=== PATIENT | female | born 1935 | race Caucasian/White ===

== ENCOUNTER 2016-07-19 10:14 | Emergency (ER) | payer OTHER, MEDICAID ==
[2016-07-19 10:45] VITALS: TEMP 95.6
[2016-07-19] MEDS ORDERED: cefTRIAXone SODIUM 1 GM VIAL ONE (10:59)
[2016-07-19] MEDS ORDERED: SODIUM CHL 0.9% 50ML MIN-BAG+ 50 ML IVPB ONE (10:59)
[2016-07-19] MEDS: ACETAMINOPHEN 325 MG TAB PO ONE (11:00)
[2016-07-19] MEDS: cefTRIAXone SODIUM 1 GM in SODIUM CHL 0.9% 50ML MIN-BAG+ 50 ML IVPB ONE (11:01)
--- NOTE | 2016-07-19 11:26 | RAD ---
EXAM DESCRIPTION: XR CHEST 1 VIEW CLINICAL HISTORY: hypoxia COMPARISON: 19 April 2016. TECHNIQUE: AP portable chest FINDINGS: A pacemaker with atrial and ventricular leads is observed. Cardiomegaly and pulmonary vascular congestion are observed. Diffuse interstitial edema is noted. Degenerative changes are observed in both shoulders. IMPRESSION: Findings of congestive heart failure demonstrated. Electronically signed by: Markus Mckinney MD 07/19/2016 11:24
[2016-07-19] MEDS ORDERED: FUROSEMIDE INJ 40 MG/4 ML VIAL ONE (11:41)
[2016-07-19] MEDS: FUROSEMIDE INJ 100 MG/10 ML VIAL IV ONE (11:42)
--- NOTE | 2016-07-19 11:48 | ED.PDOC ---
History of Present Illness - General Chief Complaint: Respiratory Problem Stated Complaint: shortness of breath Time Seen by Provider: 07/19/16 10:34 Source: patient, family Exam Limitations: no limitations - History of Present Illness Initial Comments: the patient is a 81-year-old female brought into the emergency room by her daughter. The patient has had progressive symptoms over the last 4-5 days of progressive weakness and near syncopal episodes. She does have chronic renal insufficiency and is on dialysis. She is due for dialysis today. She became weak today and was unable to ambulate even with her walker. Upon arrival of EMS her oxygen saturations were down around 70%. She does normally have some oxygen at home for as needed use and has been on that for the last 24 hours at 2 L still around 70% even with 2 L. She is now at 93% with a nonrebreather. She feels like she is having a productive sputum but is not really getting anything up. She does get more short of breath with lying back flat. There is question of fever over the last 24 hours. She apparently does not spike much of a fever with previous pneumonias. She does not make much urine. Timing/Duration: 1 week Severity: severe Improving Factors: nothing Worsening Factors: movement Associated Symptoms: loss of appetite, malaise, shortness of breath, weakness Allergies/Adverse Reactions: Allergies NO KNOWN ALLERGY Allergy (Verified 04/17/16 18:05) Home Medications: Ambulatory Orders ALPRAZolam [Xanax] 0.5 mg PO BID 04/18/16 Allopurinol [Zyloprim] 100 mg PO DAILY 04/18/16 Aspirin [Aspirin EC] 81 mg PO DAILY 04/18/16 Budesonide-Formoterol Fumarate [Symbicort 160-4.5 Mcg/Act] 1 aer IN DAILY Carvedilol [Coreg] 6.25 mg PO BID 04/18/16 DULoxetine HCL [Cymbalta] 30 mg PO BID 04/18/16 Diltiazem HCl [Dilt-Xr] 120 mg PO BID 04/18/16 Furosemide [Lasix] 40 mg PO DAILY 04/18/16 HYDROcodone 10MG/APAP 325MG [[place] 10325] 1 tab PO Q6H PRN 04/18/16 Hydralazine HCl 100 mg PO TID 04/18/16 Ipratropium/Albuterol [Duoneb] 3 ml NEB QID 04/18/16 Isosorbide Mononitrate [Isosorbide Mononitrate ER] 30 mg PO DAILY 04/18/16 Lovastatin 20 mg PO BEDTIME 04/18/16 Pantoprazole Sodium 40 mg PO ACBK 04/18/16 Sevelamer Carbonate [Renvela] 800 mg PO TID 04/18/16 Tiotropium [place] Monohydrate [Spiriva Handihaler] 1 puff IN DAILY 04/18/16 Review of Systems - Review of Systems Constitutional: States: malaise, weakness EENTM: States: no symptoms reported Respiratory: States: cough, short of breath, wheezing Cardiology: States: edema Gastrointestinal/Abdominal: States: no symptoms reported Genitourinary: States: no symptoms reported Musculoskeletal: States: no symptoms reported Skin: States: no symptoms reported Neurological: States: weakness All other Systems: No Change from Baseline Past Medical History (General) - Patient Medical History Hx Seizures: No Hx Stroke: No Hx Dementia: No Hx Asthma: No Hx of COPD: Yes Hx Congestive Heart Failure: Yes Hx Pacemaker: Yes Hx Hypertension: Yes Hx Thyroid Disease: No Hx Diabetes: Yes Hx Gastroesophageal Reflux: No Hx Renal Disease: Yes - Dialysis Hx Cancer: No Hx Hepatitis C: No Hx MRSA: No Surgical History: appendectomy, cholecystectomy, pacemaker - Vaccination History Hx Tetanus, Diphtheria Vaccination: Yes Hx Influenza Vaccination: Yes Hx Pneumococcal Vaccination: Yes - Social History Hx Tobacco Use: Yes Hx Alcohol Use: No Hx Substance Use: No Hx Physical Abuse: No Hx Emotional Abuse: No - Female History Patient : No Family Medical History - Family History Mother Family History: Unknown Physical Exam - Physical Exam General Appearance: Alert, Ill Appearing Eye Exam: bilateral normal Ears, Nose, Throat: hearing grossly normal - mildly decreased bilaterally, normal ENT inspection Neck: non-tender, full range of motion, supple Respiratory: chest non-tender, respiratory distress - moderate increased work of breathing. Decreased breath sounds to the right lower lobe. Mild diffuse wheezes. 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 The patient's oxygen saturations have improved with the nonrebreather. We are starting the patient on BiPAP. It appears the primary diagnosis is CHF exacerbation. She'll be transferred for dialysis. She is receiving a dose of IV Lasix here. Muhammad catheter is being placed. Initial evaluation showed concern for pneumonia and this is still a possibility. She has received a dose of IV Rocephin. Due to her history of COPD she is also receiving a breathing treatment. She has feeling better than upon arrival but she is going to require some significant correction in order to be able to go home. Critical care time spent on this patient 40 minutes, with not otherwise billable procedures. Blood cultures have been performed. Transfer for higher level of care. - Results/Orders Results/Orders: Laboratory Tests 07/19/16 07/19/16 10:30 11:10 WBC 10.5 RBC 3.38 L Hgb 10.2 L Hct 32.0 L MCV 94.6 MCH 30.1 MCHC 31.7 L RDW 16.3 H Plt Count 140 MPV 9.6 Absolute Neuts (auto) 8.10 H Absolute Lymphs (auto) 1.10 Absolute Monos (auto) 0.90 H Absolute Eos (auto) 0.20 Absolute Basos (auto) 0.10 Neutrophils % 77.5 Lymphocytes % 10.7 L Monocytes % 8.4 Eosinophils % 2.3 Basophils % 1.1 PT 10.8 INR 0.950 PTT (SP) 26.1 Sodium 132 L Potassium 3.6 Chloride 89 L Carbon Dioxide 33 H Anion Gap 13.6 BUN 45 H Creatinine 4.83 H BUN/Creatinine Ratio 9.3 L Random Glucose 93 Serum Osmolality 275.8 Lactic Acid 0.6 Calcium 8.7 Magnesium 2.0 Total Bilirubin 0.9 AST 14 ALT < 8 L Alkaline Phosphatase 66 Creatine Kinase 45 CK-MB (CK-2) 1.9 CK-MB (CK-2) % Not Reportable Troponin I 0.03 B-Natriuretic Peptide 1760.0 H* Serum Total Protein 6.3 L Albumin 3.0 L Globulin 3.3 Albumin/Globulin Ratio 0.9 L ABG shows a pH of 7.36. PaCO2 is 60. PaO2 was 89 on the nonrebreather. Chest x-ray is consistent with acute CHF exacerbation. Cannot definitively rule out underlying infiltrates. 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 Disposition: Transfer to Hospital Home Medications: Ambulatory Orders ALPRAZolam [Xanax] 0.5 mg PO BID 04/18/16 Allopurinol [Zyloprim] 100 mg PO DAILY 04/18/16 Aspirin [Aspirin EC] 81 mg PO DAILY 04/18/16 Budesonide-Formoterol Fumarate [Symbicort 160-4.5 Mcg/Act] 1 aer IN DAILY Carvedilol [Coreg] 6.25 mg PO BID 04/18/16 DULoxetine HCL [Cymbalta] 30 mg PO BID 04/18/16 Diltiazem HCl [Dilt-Xr] 120 mg PO BID 04/18/16 Furosemide [Lasix] 40 mg PO DAILY 04/18/16 HYDROcodone 10MG/APAP 325MG [Addy 10325] 1 tab PO Q6H PRN 04/18/16 Hydralazine HCl 100 mg PO TID 04/18/16 Ipratropium/Albuterol [Duoneb] 3 ml NEB QID 04/18/16 Isosorbide Mononitrate [Isosorbide Mononitrate ER] 30 mg PO DAILY 04/18/16 Lovastatin 20 mg PO BEDTIME 04/18/16 Pantoprazole Sodium 40 mg PO ACBK 04/18/16 Sevelamer Carbonate [Renvela] 800 mg PO TID 04/18/16 Tiotropium [place] Monohydrate [Spiriva Handihaler] 1 puff IN DAILY 04/18/16 Transfer to Outside Facility - Transfer Information Accepting Provider:: dr kennedy Accepting Facility: [facility] Reason for Transfer: required specialist not available
[2016-07-19] MEDS: IPRATROPIUM/ALBUTEROL 3 ML VIAL NEB ONE (11:55)
[2016-07-19 14:31] VITALS: BP 123/55; O2SAT 94
== END 2016-07-19 14:31 | disposition short-term general hospital (02) ==
LOC: ER 10:14
DX: I13.2 Hypertensive heart and chronic kidney disease with heart failure and with stage 5 chronic kidney disease, or end stage renal disease (principal); I50.43 Acute on chronic combined systolic (congestive) and diastolic (congestive) heart failure; N18.6 End stage renal disease; Z99.2 Dependence on renal dialysis; E11.9 Type 2 diabetes mellitus without complications; J44.9 Chronic obstructive pulmonary disease, unspecified; Z99.81 Dependence on supplemental oxygen; Z79.82 Long term (current) use of aspirin; Z79.899 Other long term (current) drug therapy; Z95.0 Presence of cardiac pacemaker

== ENCOUNTER 2016-10-03 16:29 | Emergency (ER) | payer OTHER, MEDICAID ==
[2016-10-03] MEDS ORDERED: FUROSEMIDE 40 MG TAB PO ONE (17:09)
--- NOTE | 2016-10-03 17:15 | ED.PDOC ---
History of Present Illness - General Chief Complaint: Cardiovascular Problem Stated Complaint: left arm edema/left eye pain Time Seen by Provider: 10/03/16 16:30 Source: patient Exam Limitations: no limitations - History of Present Illness Initial Comments: The patient is an 81-year-old female presenting to the emergency room secondary to a 1 week history of progressive swelling to the left upper extremity. This seems to start in her left hand and gradually moved up her left arm. She does have significant edema to the left arm at this time as well as some mild swelling to the left side of her face. The patient is a dialysis patient and is due for dialysis tomorrow. She has had a mild progression of shortness of breath over the course of the last week. She is feeling a little weaker. No nausea or vomiting and no chest pain. No cough. The patient is pleasant and cooperative and alert and oriented. Timing/Duration: 1 week Severity: moderate Improving Factors: nothing Worsening Factors: nothing Associated Symptoms: malaise, shortness of breath Allergies/Adverse Reactions: Allergies NO KNOWN ALLERGY Allergy (Verified 04/17/16 18:05) Home Medications: Ambulatory Orders ALPRAZolam [Xanax] 0.5 mg PO BID 04/18/16 Allopurinol [Zyloprim] 100 mg PO DAILY 04/18/16 Aspirin [Aspirin EC] 81 mg PO DAILY 04/18/16 Budesonide-Formoterol Fumarate [Symbicort 160-4.5 Mcg/Act] 1 aer IN DAILY Carvedilol [Coreg] 6.25 mg PO BID 04/18/16 DULoxetine HCL [Cymbalta] 30 mg PO BID 04/18/16 Diltiazem HCl [Dilt-Xr] 120 mg PO BID 04/18/16 Furosemide [Lasix] 40 mg PO DAILY 04/18/16 HYDROcodone 10MG/APAP 325MG [[place] 10325] 1 tab PO Q6H PRN 04/18/16 Hydralazine HCl 100 mg PO TID 04/18/16 Ipratropium/Albuterol [Duoneb] 3 ml NEB QID 04/18/16 Isosorbide Mononitrate [Isosorbide Mononitrate ER] 30 mg PO DAILY 04/18/16 Lovastatin 20 mg PO BEDTIME 04/18/16 Pantoprazole Sodium 40 mg PO ACBK 04/18/16 Sevelamer Carbonate [Renvela] 800 mg PO TID 04/18/16 Tiotropium [place] Monohydrate [Spiriva Handihaler] 1 puff IN DAILY 04/18/16 Review of Systems - Review of Systems Constitutional: States: malaise, weakness EENTM: States: no symptoms reported Respiratory: States: short of breath Cardiology: States: edema Gastrointestinal/Abdominal: States: no symptoms reported Genitourinary: States: no symptoms reported Musculoskeletal: States: no symptoms reported Skin: States: no symptoms reported Neurological: States: no symptoms reported Endocrine: States: no symptoms reported All other Systems: No Change from Baseline Past Medical History (General) - Patient Medical History Hx Seizures: No Hx Stroke: No Hx Dementia: No Hx Asthma: No Hx of COPD: Yes Hx Congestive Heart Failure: Yes Hx Pacemaker: Yes Hx Hypertension: Yes Hx Thyroid Disease: No Hx Diabetes: Yes Hx Gastroesophageal Reflux: No Hx Renal Disease: Yes - Dialysis Hx Cancer: No Hx Hepatitis C: No Hx MRSA: No - Vaccination History Hx Tetanus, Diphtheria Vaccination: Yes Hx Influenza Vaccination: Yes Hx Pneumococcal Vaccination: Yes - Social History Hx Tobacco Use: Yes Hx Alcohol Use: No Hx Substance Use: No Hx Physical Abuse: No Hx Emotional Abuse: No - Female History Patient : No Family Medical History - Family History Mother Family History: Unknown Physical Exam - Physical Exam General Appearance: Alert, Comfortable, No apparent distress Eye Exam: right other - Mild periorbital edema and conjunctival injection, bilateral normal Ears, Nose, Throat: hearing grossly normal, normal ENT inspection Neck: non-tender, full range of motion, supple Respiratory: lungs clear, normal breath sounds, no respiratory distress, no accessory muscle use, other - right lateral inferior rib cage uncomfortable to palpation Cardiovascular/Chest: normal peripheral pulses, other - regular rate Peripheral Pulses: radial,right: 2+ - through was palpable at the dialysis site on the left, radial,left: 2+ Gastrointestinal/Abdominal: non tender, soft Rectal Exam: deferred Back Exam: CVA tenderness (R) - from the fall Extremity: normal range of motion, no calf tenderness, normal capillary refill, swelling - to the left upper extremity. Neurologic: alert, normal mood/affect, oriented x 3 Skin Exam: normal color Comments: Vital Signs - 24 hr 10/03/16 10/03/16 16:49 16:55 Temperature 96.2 F L Pulse Rate [ 70 16 L RIGHT BRACHIAL] Respiratory 16 Rate Blood Pressure 134/62 [RIGHT BRACHIAL ] O2 Sat by Pulse 88 L Oximetry Departure - Departure Disposition: Discharge to Home or Self Care Departure Forms: ED Discharge - Pt. Copy, Patient Portal Self Enrollment Home Medications: Ambulatory Orders ALPRAZolam [Xanax] 0.5 mg PO BID 04/18/16 Allopurinol [Zyloprim] 100 mg PO DAILY 04/18/16 Aspirin [Aspirin EC] 81 mg PO DAILY 04/18/16 Budesonide-Formoterol Fumarate [Symbicort 160-4.5 Mcg/Act] 1 aer IN DAILY Carvedilol [Coreg] 6.25 mg PO BID 04/18/16 DULoxetine HCL [Cymbalta] 30 mg PO BID 04/18/16 Diltiazem HCl [Dilt-Xr] 120 mg PO BID 04/18/16 Furosemide [Lasix] 40 mg PO DAILY 04/18/16 HYDROcodone 10MG/APAP 325MG [[place] 10] 1 tab PO Q6H PRN 04/18/16 Hydralazine HCl 100 mg PO TID 04/18/16 Ipratropium/Albuterol [Duoneb] 3 ml NEB QID 04/18/16 Isosorbide Mononitrate [Isosorbide Mononitrate ER] 30 mg PO DAILY 04/18/16 Lovastatin 20 mg PO BEDTIME 04/18/16 Pantoprazole Sodium 40 mg PO ACBK 04/18/16 Sevelamer Carbonate [Renvela] 800 mg PO TID 04/18/16 Tiotropium [place] Monohydrate [Spiriva Handihaler] 1 puff IN DAILY 04/18/16 Addendum entered and electronically signed by Stephanie Butt MD 10/03/16 19: 58: Departure - Departure Clinical Impression: Edema of upper extremity, ESRD (end stage renal disease) on dialysis, Abnormal chest x-ray Dyspnea Qualifiers: Dyspnea type: shortness of breath Qualifier Code: (R06.02) Shortness of breath ICD-10 Supporting Text: Left upper extremity edema Time of Disposition: 19:55 Disposition: Transfer to Hospital Home Medications: Ambulatory Orders ALPRAZolam [Xanax] 0.5 mg PO BID 04/18/16 Allopurinol [Zyloprim] 100 mg PO DAILY 04/18/16 Aspirin [Aspirin EC] 81 mg PO DAILY 04/18/16 Budesonide-Formoterol Fumarate [Symbicort 160-4.5 Mcg/Act] 1 aer IN DAILY Carvedilol [Coreg] 6.25 mg PO BID 04/18/16 DULoxetine HCL [Cymbalta] 30 mg PO BID 04/18/16 Diltiazem HCl [Dilt-Xr] 120 mg PO BID 04/18/16 Furosemide [Lasix] 40 mg PO PRN 04/18/16 HYDROcodone 10MG/APAP 325MG [[place]ur[place] ] 1 tab PO Q4HR PRN 04/18/16 Hydralazine HCl 100 mg PO TID 04/18/16 Ipratropium/Albuterol [Duoneb] 3 ml NEB QID 04/18/16 Isosorbide Mononitrate [Isosorbide Mononitrate ER] 30 mg PO DAILY 04/18/16 Lovastatin 20 mg PO BEDTIME 04/18/16 Pantoprazole Sodium 40 mg PO ACBK 04/18/16 Sevelamer Carbonate [Renvela] 800 mg PO TID 04/18/16 Tiotropium [place] Monohydrate [Spiriva Handihaler] 1 puff IN DAILY 04/18/16 ED Addendum - ED Addendum Addendum: Discussed case with Dr. Brewer. Because of Patient's fragility, need for dialysis tomorrow and possibility of a problem with her shunt, he prefers to have her transferred. Transfer to Outside Facility - Transfer Information Accepting Provider:: Dr. Duron Accepting Facility: [facility] Reason for Transfer: required specialist not available
--- NOTE | 2016-10-03 17:55 | RAD ---
EXAM DESCRIPTION: Chest,2 Views (accession [id number]), Ribs,Right 2 Views (accession [id number]) CLINICAL HISTORY: LUE edema, sob COMPARISON: Same day earlier time FINDINGS: Frontal view of the chest and three views of the right ribs were submitted. There is blunting of the left costophrenic angle which could be secondary to pleural fluid versus pleural thickening. Pacer leads project over the heart. There is atherosclerosis. There are degenerative changes of both shoulders. Small nodular opacities within the left mid chest may represent calcified pulmonary nodules. There is no discrete displaced right rib fracture. There is no pneumothorax.. IMPRESSION: Blunted left costophrenic angle could be secondary to pleural fluid. Recommend follow-up. Electronically signed by: Adan Ortiz MD 10/03/2016 5:53 PM CDT
--- NOTE | 2016-10-03 17:55 | RAD ---
EXAM DESCRIPTION: Chest,2 Views (accession [id number]), Ribs,Right 2 Views (accession [id number]) CLINICAL HISTORY: LUE edema, sob COMPARISON: Same day earlier time FINDINGS: Frontal view of the chest and three views of the right ribs were submitted. There is blunting of the left costophrenic angle which could be secondary to pleural fluid versus pleural thickening. Pacer leads project over the heart. There is atherosclerosis. There are degenerative changes of both shoulders. Small nodular opacities within the left mid chest may represent calcified pulmonary nodules. There is no discrete displaced right rib fracture. There is no pneumothorax.. IMPRESSION: Blunted left costophrenic angle could be secondary to pleural fluid. Recommend follow-up. Electronically signed by: Adan Ortiz MD 10/03/2016 5:53 PM CDT
[2016-10-03] MEDS ORDERED: HEPARIN SODIUM (PORCINE) 5,000 U/ML VIAL IV ONE (19:44)
[2016-10-03] MEDS ORDERED: HEPARIN PREMIX 500 ML IV SCH (19:50)
[2016-10-03 19:53] VITALS: TEMP 96.5
[2016-10-03 19:55] VITALS: O2SAT 97
[2016-10-03 20:28] VITALS: BP 148/76
== END 2016-10-03 20:30 | disposition short-term general hospital (02) ==
LOC: ER 16:29
DX: R60.0 Localized edema (principal); I13.2 Hypertensive heart and chronic kidney disease with heart failure and with stage 5 chronic kidney disease, or end stage renal disease; N18.6 End stage renal disease; I50.9 Heart failure, unspecified; J44.9 Chronic obstructive pulmonary disease, unspecified; R06.02 Shortness of breath; E11.9 Type 2 diabetes mellitus without complications; Z99.2 Dependence on renal dialysis; Z79.82 Long term (current) use of aspirin; Z79.899 Other long term (current) drug therapy; Z87.891 Personal history of nicotine dependence

== ENCOUNTER 2016-10-08 10:07 | Inpatient (IN) | payer OTHER ==
--- NOTE | 2016-10-08 10:56 | ED.PDOC ---
History of Present Illness - General Chief Complaint: Respiratory Problem Stated Complaint: SHORTNESS OF BREATH Time Seen by Provider: 10/08/16 10:19 Source: RN notes reviewed, Vital Signs reviewed, family Exam Limitations: clinical condition - History of Present Illness Initial Comments: Patient was sent in by home health for evaluation for admission for inpatient hospice care. Patient and family are agreeable with plan. She was recently diagnosed with a blood clot in her dialysis shunt and thus can't get her dialysis. Timing/Duration: getting worse Severity: moderate Improving Factors: nothing Worsening Factors: nothing Associated Symptoms: loss of appetite, malaise, shortness of breath Allergies/Adverse Reactions: Allergies NO KNOWN ALLERGY Allergy (Verified 04/17/16 18:05) Home Medications: Ambulatory Orders ALPRAZolam [Xanax] 0.5 mg PO BID 04/18/16 Allopurinol [Zyloprim] 100 mg PO DAILY 04/18/16 Aspirin [Aspirin EC] 81 mg PO DAILY 04/18/16 Budesonide-Formoterol Fumarate [Symbicort 160-4.5 Mcg/Act] 1 aer IN DAILY Carvedilol [Coreg] 6.25 mg PO BID 04/18/16 DULoxetine HCL [Cymbalta] 30 mg PO BID 04/18/16 Diltiazem HCl [Dilt-Xr] 120 mg PO BID 04/18/16 Furosemide [Lasix] 40 mg PO PRN 04/18/16 HYDROcodone 10MG/APAP 325MG [[place] 325] 1 tab PO Q4HR PRN 04/18/16 Hydralazine HCl 100 mg PO TID 04/18/16 Ipratropium/Albuterol [Duoneb] 3 ml NEB QID 04/18/16 Isosorbide Mononitrate [Isosorbide Mononitrate ER] 30 mg PO DAILY 04/18/16 Lovastatin 20 mg PO BEDTIME 04/18/16 Pantoprazole Sodium 40 mg PO ACBK 04/18/16 Sevelamer Carbonate [Renvela] 800 mg PO TID 04/18/16 Tiotropium [place] Monohydrate [Spiriva Handihaler] 1 puff IN DAILY 04/18/16 Review of Systems - Review of Systems Constitutional: States: malaise, weakness Respiratory: States: short of breath Cardiology: States: no symptoms reported. Denies: chest pain, palpitations Gastrointestinal/Abdominal: States: no symptoms reported Musculoskeletal: States: back pain Skin: States: no symptoms reported Neurological: States: no symptoms reported Endocrine: States: no symptoms reported Hematologic/Lymphatic: States: blood clots Past Medical History (General) - Patient Medical History Hx Seizures: No Hx Stroke: No Hx Dementia: No Hx Asthma: No Hx of COPD: Yes Hx Congestive Heart Failure: Yes Hx Pacemaker: Yes Hx Hypertension: Yes Hx Thyroid Disease: No Hx Diabetes: Yes Hx Gastroesophageal Reflux: No Hx Renal Disease: Yes - Dialysis Hx Cancer: No Hx Hepatitis C: No Hx MRSA: No - Vaccination History Hx Tetanus, Diphtheria Vaccination: Yes Hx Influenza Vaccination: Yes Hx Pneumococcal Vaccination: Yes - Social History Hx Tobacco Use: Yes Hx Alcohol Use: No Hx Substance Use: No Hx Physical Abuse: No Hx Emotional Abuse: No - Female History Patient : No Family Medical History - Family History Mother Family History: Unknown Physical Exam - Physical Exam General Appearance: Emaciated, Frail, No apparent distress, Lethargic Respiratory: lungs clear, normal breath sounds, no respiratory distress, no accessory muscle use Cardiovascular/Chest: regular rate, rhythm, no edema, no gallop, no murmur Gastrointestinal/Abdominal: normal bowel sounds, non tender, soft Neurologic: alert Comments: Vital Signs - 24 hr 10/08/16 10/08/16 10/08/16 10:15 10:19 11:05 Temperature 97.7 F Pulse Rate [ 77 76 RIGHT BRACHIAL] Respiratory 14 14 16 Rate Blood Pressure 157/76 151/80 [RIGHT BRACHIAL ] O2 Sat by Pulse 85 L 99 Oximetry 10/08/16 10/08/16 12:00 12:27 Temperature Pulse Rate [ 83 83 RIGHT BRACHIAL] Respiratory 16 20 Rate Blood Pressure 153/74 153/74 [RIGHT BRACHIAL ] O2 Sat by Pulse 98 99 Oximetry Progress - Progress Progress: 10/08/16 10:57 Spoke with Elizabeth with [facility]. She will come and evaluate patient. 10/08/16 12:28 Patient evaluated by hospice nurse and admitted into inpatient hospice. Departure - Departure Clinical Impression: ESRD (end stage renal disease) on dialysis Dyspnea Qualifiers: Dyspnea type: shortness of breath Qualified Code(s): R06.02 - Shortness of breath; R06.00 - Dyspnea, unspecified; R06.01 - Orthopnea Time of Disposition: 12:29 Disposition: Admit Patient Condition: Serious Departure Forms: ED Discharge - Pt. Copy, Patient Portal Self Enrollment Referrals: Jacinto Orourke MD [Primary Care Provider] - 1-2 Weeks Home Medications: Ambulatory Orders ALPRAZolam [Xanax] 0.5 mg PO BID 04/18/16 Allopurinol [Zyloprim] 100 mg PO DAILY 04/18/16 Aspirin [Aspirin EC] 81 mg PO DAILY 04/18/16 Budesonide-Formoterol Fumarate [Symbicort 160-4.5 Mcg/Act] 1 aer IN DAILY Carvedilol [Coreg] 6.25 mg PO BID 04/18/16 DULoxetine HCL [Cymbalta] 30 mg PO BID 04/18/16 Diltiazem HCl [Dilt-Xr] 120 mg PO BID 04/18/16 Furosemide [Lasix] 40 mg PO PRN 04/18/16 HYDROcodone 10MG/APAP 325MG [[place] ] 1 tab PO Q4HR PRN 04/18/16 Hydralazine HCl 100 mg PO TID 04/18/16 Ipratropium/Albuterol [Duoneb] 3 ml NEB QID 04/18/16 Isosorbide Mononitrate [Isosorbide Mononitrate ER] 30 mg PO DAILY 04/18/16 Lovastatin 20 mg PO BEDTIME 04/18/16 Pantoprazole Sodium 40 mg PO ACBK 04/18/16 Sevelamer Carbonate [Renvela] 800 mg PO TID 04/18/16 Tiotropium [place] Monohydrate [Spiriva Handihaler] 1 puff IN DAILY 04/18/16 Decision To Admit - Decistion To Admit Decision to Admit Reason: Admit from ER
[2016-10-08] MEDS ORDERED: IV SET AND CAP CHANGE INJ INJ SCH (12:30)
[2016-10-08] MEDS: ALBUTEROL SULFATE 2.5 MG/3 ML VIAL NEB PRN ×2 (13:25→16:35)
[2016-10-08] MEDS: MORPHINE SULFATE INJ 10 MG/ML VIAL IV PRN ×2 (16:20→19:54)
--- NOTE | 2016-10-08 17:22 | HP ---
SUPERVISING PHYSICIAN: Giles Sarmiento M.D. CHIEF COMPLAINT: End stage renal failure. HISTORY OF PRESENT ILLNESS: Ms. Shi is an 80 year-old female patient that has a history of chronic renal failure on hemodialysis 3 times a week since 2011. This past week she was seen in the [facility] Emergency Department for a left swollen arm at which time it was determined that her arterial venous graft was clotted at which point she was transferred to [facility] for assistance with re-accessing and declotting the dialysis graft. Once at [facility], it was determined that due to the patient's underlying co-morbidities, the patient would not survive revision of her graft and removal of a clot. The family and the patient at that time decided that the patient would like to transition home as she would like to transition to hospice care. Today, her Home Health nurse sent the patient to the Emergency Department due to the fact that the patient is having a significant decline in her condition and the family is requesting that the patient be admitted to hospice care. In the Emergency Department, a consultation was secured with hospice with [facility] and the patient was admitted into hospice care for care and comfort measures. Therefore the patient is now going to be admitted to inpatient hospice under the care of [facility] for care and comfort measures. The patient's prognosis is grim. The patient was admitted for care and comfort measures. PAST MEDICAL HISTORY: 1. Multiple episodes of pneumonia requiring hospitalizations. 2. Chronic renal failure diagnosed in 2011 on hemodialysis 3 times a week. 3. Pacemaker insertion. 4. Chronic obstructive pulmonary disease having smoked up until 14 years previous. 5. History of rheumatoid arthritis. 6. Macular degeneration. 7. Coronary artery disease with coronary stents placed within the last year. 8. History of hypertension. 9. Diabetes mellitus on diet control. 10. Gastroesophageal reflux disease. 11. Osteoarthritis. PAST SURGICAL HISTORY: 1. Appendectomy. 2. Cholecystectomy. 3. Hysterectomy. 4. Ankle surgery. 5. Knee surgery. 6. Coronary stent placements. 7. Pacemaker placement. CURRENT MEDICATIONS: Please refer to the electronic medical records and nurses ' notes for an updated list of verified medications. ALLERGIES: NO KNOWN DRUG ALLERGIES. FAMILY HISTORY: Positive for cerebrovascular accidents and cancer. 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 She currently lives at [facility]. She was a previous smoker having stopped 14 years previously. She denies any alcohol or illicit drug use. REVIEW OF SYSTEMS: Unobtainable due to the patient's condition. PHYSICAL EXAMINATION: VITAL SIGNS: Admission temperature 97.7, pulse 100, blood pressure 151/80, respirations 24, O2 sat 87% nasal cannula at 5 liters. GENERAL: The patient is very emaciated and frail but appears to be comfortable. She is quite lethargic. She is in no obvious distress. CHEST: Lungs are clear with diminished breath sounds throughout. No accessory muscle use is noted. CARDIOVASCULAR: Regular rate and rhythm with no appreciable murmurs, gallops, or rubs. ABDOMEN: Soft, non-tender. Positive bowel sounds. EXTREMITIES: There is notable tenderness to both upper and lower extremities. The upper left arm is notably swollen with multiple bruising on both arms. NEUROLOGIC: She is alert and cooperative. Resting comfortably. LABORATORY AND RADIOLOGY: There are none completed as she is a hospice patient. ASSESSMENT: 1. 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 2. Chronic obstructive pulmonary disease in a previous smoker. 3. Rheumatoid arthritis. 4. Coronary artery disease with multiple coronary stents. 5. History of hypertension. 6. Diabetes mellitus previously on diet control. PLAN: The patient will be admitted to hospice inpatient care under the services of hospice through [facility] and Dr. Matute. Orders were provided per hospice services for care and comfort measures only. The patient's prognosis is grim. Anticipate ultimate within likely the next 1 to 5 days. Until then, will continue to monitor the patient and provide assistance to the family and the patient as needed. #[id number] [facility]
[2016-10-08] MEDS: SODIUM CHLORIDE 0.9% (FLUSH) 10 ML SYG IV PRN (19:54)
[2016-10-08] MEDS: SODIUM CHLORIDE 0.9% (FLUSH) 10 ML SYG IV SCH (20:35)
[2016-10-09] MEDS: SODIUM CHLORIDE 0.9% (FLUSH) 10 ML SYG IV PRN (00:45)
[2016-10-09] MEDS: MORPHINE SULFATE INJ 10 MG/ML VIAL IV PRN ×5 (00:46→21:41)
[2016-10-09] MEDS: SODIUM CHLORIDE 0.9% (FLUSH) 10 ML SYG IV SCH ×2 (08:46→21:40)
[2016-10-10] MEDS ORDERED: SODIUM CHLORIDE 0.9% 10 ML VIAL ONE (02:47)
[2016-10-10] MEDS: SODIUM CHLORIDE 0.9% (FLUSH) 10 ML SYG IV PRN ×2 (02:49→22:00)
[2016-10-10] MEDS: MORPHINE SULFATE INJ 10 MG/ML VIAL IV PRN ×4 (02:50→22:01)
[2016-10-10 06:08] VITALS: BP 110/65; TEMP 98.6; O2SAT 90
[2016-10-10] MEDS: SODIUM CHLORIDE 0.9% (FLUSH) 10 ML SYG IV SCH ×2 (09:30→21:00)
[2016-10-10] MEDS ORDERED: SCOPOLAMINE PATCH 1.5MG 1 EA TD SCH (10:30)
== END 2016-10-11 02:50 | disposition expired | DRG 682 ==
LOC: ER 10:07 → MS 12:24
PROVIDERS: ADMIT Nurse Practitioner Family; ATTEND Nurse Practitioner Family
DX: I12.0 Hypertensive chronic kidney disease with stage 5 chronic kidney disease or end stage renal disease (principal); N18.6 End stage renal disease; E11.22 Type 2 diabetes mellitus with diabetic chronic kidney disease; M06.9 Rheumatoid arthritis, unspecified; H35.30 Unspecified macular degeneration; I25.10 Atherosclerotic heart disease of native coronary artery without angina pectoris; K21.9 Gastro-esophageal reflux disease without esophagitis; M19.90 Unspecified osteoarthritis, unspecified site; J44.9 Chronic obstructive pulmonary disease, unspecified; Z99.2 Dependence on renal dialysis; Z95.0 Presence of cardiac pacemaker; Z87.891 Personal history of nicotine dependence; Z79.82 Long term (current) use of aspirin; Z51.5 Encounter for palliative care; Z66 Do not resuscitate